=== PATIENT | female | born 1980 | race Caucasian/White ===

== ENCOUNTER 2018-10-19 14:12 | Emergency (ER) | payer OTHER, SELFPAY ==
[2018-10-19 14:13] VITALS: BP 82/60; PULSE 67; RESP 16; TEMP 36; O2SAT 98; BMI 42.0
[2018-10-19 14:29] VITALS: BP 128/85; PULSE 80; RESP 18; O2SAT 98
--- NOTE | 2018-10-19 14:45 | RAD_ITS ---
STUDY: X-RAY - RIGHT FOOT CLINICAL: Female, 38 years old. Dropped object on first toe, pain, nail injury TECHNIQUE: 3 view(s) of the foot. COMPARISON: None. FINDINGS: Normal talus, calcaneus, and tarsal bones. Normal visualized subtalar, talonavicular, calcaneocuboid, tarsal and tarsometatarsal articulations. Normal metatarsi. Normal metatarsophalangeal joint of the great toe. Normal tibial and fibular sesamoid bones. Normal interphalangeal joint of the great toe. Normal phalanges of the great toe. Normal second through fifth metatarsophalangeal joints. Normal interphalangeal joints and phalanges of the lesser toes. There is localized soft tissue swelling of the first toe, base of the nailbed. RAD/Foot min 3 Views IMPRESSION: 1. No fracture or malalignment. Soft tissue injury of the first toe. Electronically Signed: Rizwan Martinez MD at 15:09 EDT , Service support ,
--- NOTE | 2018-10-19 15:53 | ED.DCSUM_ITS ---
- ER Visit Summary Date of Service: 10/19/18 Chief Complaint: Right great toe injury History of Present Illness: The patient is a [address] Lofton. She reports that just prior to coming emergency department she dropped a candle on her right great toe suffering a laceration. She has an aching pain Zeta 10 with walking 7 out of 10 at rest. She denies any paresthesias. She denies any other injuries. Her tetanus is up-to-date. Physical Examination: Vitals: Stable. Afebrile. General: Well-nourished and well-developed. Head: Normocephalic atraumatic. Neck: Supple, no lymphadenopathy. No JVD. Nontender. Cardiovascular: Regular rate and rhythm. No murmurs. Respiratory: No respiratory distress. Clear to auscultation bilaterally. Abdominal: Soft, nontender, nondistended, normal bowel sounds. No guarding, rebound, or peritoneal signs. Back: Nontender. Extremities: Moderate tenderness to palpation over her right great toe. The nail is partially avulsed and is out of the eponychial fold. Skin: Normal color, no rash. Neurologic: Alert and oriented ?3. Cranial nerves II through XII are intact. Normal strength and sensation. Psych: Normal affect. Test Results: X-ray shows no fracture. Emergency Department Course and Treatment: Patient had a digital block performed. Her nailbed was then repaired. She tolerated this well. Treatment Plan: Patient will be discharged instructions to follow-up Dr. Chapa in 2 weeks for suture removal. Return to the emergency department for any worsening symptoms. Disposition: To home in improved and stable condition. Impression: 1. Right great toe nailbed laceration, 1 cm, repaired. Procedure note: Wound was cleansed with chlorhexidine soap. Digital block was performed with bupivacaine. The nail was removed. The nailbed was cleansed with chlorhexidine soap. It was then copiously irrigated. The tissue was brought together with 2 simple interrupted 4-0 Vicryl sutures. Copiously irrigated with normal saline. Wound was explored there is no foreign material present. The nail was then placed back in the eponychial fold and sutured in place with 3 simple interrupted 4-0 Ethilon sutures. The patient tolerated it well. This note was generated with [employer] software. It may contain incorrect words, spelling, and punctuation that were not noted in review of the chart prior to signing ED Disposition - Plan for ED Patient: Disposition: Home or Assisted Living Instructions: NAIL AVULSION, Partial Prescriptions: Hydrocodone Bitart/Apap 5-325 [Clyde 5MG-325MG] 1 tab PO Q4H PRN PRN 2 Days #10 tab PRN Reason: Pain Prescription Printed Referrals: Ermias Chapa DPM [STAFF PHYSICIAN] - 10-14 Days suture removal
[2018-10-19] MEDS: Bupivacaine Mpf 0.5% 30 ML VIAL INFILT (15:59)
== END 2018-10-19 16:09 | disposition home or self-care (01) ==
LOC: ED 15:00
PROVIDERS: Emergency Provider Emergency Medicine; Family Provider Family Medicine; PCP Family Medicine
DX: S91.211A Laceration without foreign body of right great toe with damage to nail, initial encounter (principal); W20.8XXA Other cause of strike by thrown, projected or falling object, initial encounter; Y93.9 Activity, unspecified; Y92.89 Other specified places as the place of occurrence of the external cause; Y99.8 Other external cause status
CPT/HCPCS: 11730; 73630; 99284